=== PATIENT | female | born 1965 | race Two or more races ===

== ENCOUNTER 2019-01-03 15:14 | Emergency (ER) | payer OTHER | END 2019-01-03 23:03 | disposition home or self-care (01) | LOC: JER 15:14 ==

== ENCOUNTER 2019-08-09 16:05 | Observation (INO) | payer OTHER ==
[2019-08-09] MEDS ORDERED: ASPIRIN 81 MG CHEWABLE TABLETS PO ONE (16:12)
--- NOTE | 2019-08-09 16:12 | PDOC ---
Rapid Medical Evaluation Chief Complaint: Chest Pain Time Seen by Provider: 08/09/19 16:11 Medical Evaluation: Allergies Allergy/AdvReac Type Severity Reaction Status Date / Time No Known Drug Allergies Allergy Verified 01/03/19 15:17 fresh fruit Allergy Severe Uncoded 01/03/19 15:17 seafood Allergy Severe Uncoded 01/03/19 15:17 08/09/19 16:11 HPI: CP x1 week PE: No gross deficits ORDERS: Labs ASA Discharge Disposition - Diagnosis Chest pain - Referrals - Patient Instructions - Post Discharge Activity
[2019-08-09 16:17] VITALS: BMI 39.1
[2019-08-09] MEDS ORDERED: ASPIRIN 81 MG CHEWABLE TABLETS ONE (16:27)
--- NOTE | 2019-08-09 16:27 | PDOC ---
History of Present Illness - General Chief Complaint: Chest Pain Stated Complaint: R/O HEART ATTACK/CHEST PAIN Time Seen by Provider: 08/09/19 16:11 History Source: Patient Exam Limitations: No Limitations - History of Present Illness Initial Comments: 08/09/19 16:27 54yF w HTN, HLD, DM, CAD s/p three-vessel bypass and multiple stents, pituitary ademona s/p resection, migraines, diabetic peripheral neuropathy presenting w 1 week exertional chest pain, SOB, L arm weakness. Midsternal chest tightness, SOB worse with exertion, with reduced exercise capacity (symptom onset after 20 yards). Not related to position/food. Associated intermittent sharp pains between shoulder blades and L arm aching/weakness more persistent today. Similar symptoms to past [place]. Currently denying any symptoms at rest. Took 81 aspirin today, did not take any tylenol / aleve today. Denies fever, cough, vision change, headache, BLE swelling, AB pain, urinary/bowel mvmt changes. Past History - Past Medical History Allergies/Adverse Reactions: Allergies Allergy/AdvReac Type Severity Reaction Status Date / Time No Known Drug Allergies Allergy Verified 01/03/19 15:17 fresh fruit Allergy Severe Uncoded 01/03/19 15:17 seafood Allergy Severe Uncoded 01/03/19 15:17 Home Medications: Ambulatory Orders Amlodipine Besylate [Norvasc -] 5 mg PO DAILY 01/03/19 Ascorbic Acid [Vitamin C -] 1,000 mg PO HS 01/03/19 Aspirin 81 mg PO DAILY 01/03/19 Atorvastatin Calcium 80 mg PO HS 01/03/19 Cetirizine HCl [Zyrtec -] 10 mg PO DAILY 01/03/19 Cholecalciferol (Vitamin D3) [Vitamin D3] unit PO DAILY 01/03/19 Clopidogrel Bisulfate [Plavix -] 75 mg PO DAILY 01/03/19 Empagliflozin [Jardiance] 10 mg PO DAILY 01/03/19 Ezetimibe [Zetia -] 10 mg PO DAILY 01/03/19 Flaxseed Oil [Adah-3 Flaxseed Oil] 1,400 mg PO HS 01/03/19 Glimepiride [Amaryl -] 4 mg PO BID 01/03/19 Icosapent Ethyl [Vascepa] 1 gm PO BID 01/03/19 Isosorbide Mononitrate [Imdur -] 30 mg PO DAILY 01/03/19 Lisinopril [Prinivil] 10 mg PO DAILY 01/03/19 Magnesium Oxide [Magnesium] 500 mg PO HS 01/03/19 Metoprolol Succinate [Toprol Xl -] 25 mg PO BID 01/03/19 Montelukast Na [Singulair -] 10 mg PO HS 01/03/19 Ranitidine [Zantac -] 150 mg PO BID 01/03/19 Sitagliptin Phos/Metformin HCl [Janumet 50-1,000 mg Tablet] 1 each PO BID Cardiac Disorders: Yes (CAD) COPD: No Diabetes: Yes HTN: Yes - Surgical History Cardiac Surgery: Yes (triple bypass) Cholecystectomy: Yes - Immunization History Immunization Up to Date: Yes - Psycho Social/Smoking Cessation Hx Smoking Status: No Smoking History: Never smoked Have you smoked in the past 12 months: No Number of Cigarettes Smoked Daily: 0 Information on smoking cessation initiated: No Hx Alcohol Use: No Drug/Substance Use Hx: No Hx Substance Use Treatment: No Review of Systems - Review of Systems Constitutional: No: Chills, Fever HEENTM: No: Eye Pain, Nose Pain, Throat Pain, Mouth Pain Respiratory: Yes: SOB with Exertion. No: Cough Cardiac (ROS): Yes: Chest Pain. No: Palpitations, Syncope ABD/GI: No: Abdominal Distended, Constipated, Diarrhea, Nausea, Vomiting : No: Burning, Dysuria, Discharge, Hematuria Musculoskeletal: Yes: Back Pain. No: Joint Pain Integumentary: No: Bruising, Flushing, Lesions Neurological: Yes: Weakness (L arm). No: Headache, Numbness, Seizure, Tingling Psychiatric: No: Anxiety, Depression, Stressors Endocrine: No: Excessive Sweating, Flushing, Intolerance to Cold, Intolerance to Heat Hematologic/Lymphatic: No: Anemia, Blood Clots *Physical Exam - Vital Signs Last Vital Signs Temp Pulse Resp BP Pulse Ox 98.7 F 78 18 127/64 98 08/09/19 16:10 08/09/19 16:10 08/09/19 16:10 08/09/19 16:10 08/09/19 16:10 - Physical Exam General Appearance: Yes: Nourished, Appropriately Dressed. No: Apparent Distress HEENT: positive: EOMI, YANETH, Normal Voice. negative: Scleral Icterus (R), Scleral Icterus (L), Nasal Congestion Respiratory/Chest: positive: Lungs Clear, Normal Breath Sounds. negative: Chest Tender, Respiratory Distress, Crackles, Rales, Rhonchi, Stridor, Wheezing Cardiovascular: positive: Regular Rhythm, Regular Rate, S1, S2. negative: Edema , Murmur Extremity: positive: Normal Capillary Refill. 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 negative: Sensory Deficit, Confused, Disoriented Heart Score/ECG Review - History History: Moderately suspicious - Electrocardiogram EKG: Normal - Age Age: 45-65 - Risk Factors Risk Factors Heart Score: Yes Hx Hypercholesterolemia, Yes Hx Hypertension, Yes Hx Obesity Based on the list above the patient has:: >/=3 risk factors or Hx atherosclerotic disease - Troponin Troponin: </= normal limit - Score Heart Score - Total: 4 ED Treatment Course - LABORATORY CBC & Chemistry Diagram: 08/09/19 18:30 08/09/19 18:30 Medical Decision Making - Medical Decision Making 08/09/19 17:00 EKG - NSR, HR 78, QTc 419, unchanged since 01/03/19 CXR - clear lung blancas, normal heart size, no infiltrates/acute process Head CT pending official report, no gross infarct/bleed visualized --- 54yF w HTN, HLD, DM, CAD s/p three-vessel bypass and multiple stents, pituitary ademona s/p resection, migraines, diabetic peripheral neuropathy presenting w 1 week exertional chest pain, SOB, L arm weakness d/t unstable angina (neg tropx1 , NSR EKG). Low concern for CVA (no focal neuro deficits) vs aortic dissection ( not hypertensive) vs PE (no unilateral swelling) vs CHF (no BLE swelling) vs (neg) Given 162 aspirin Admitted tele/obvs Dr Phelan for unstable angina, HEART score 4, ACS rule out - pending 2nd trop, head CT [facility] Dr Kaba Discharge - Discharge Information Problems reviewed: Yes Clinical Impression/Diagnosis: Unstable angina Condition: Stable - Follow up/Referral Referrals: Gustavo Fowler MD [Primary Care Provider] - - Patient Discharge Instructions - Post Discharge Activity
--- NOTE | 2019-08-09 17:02 | PDOC ---
Attending Attestation - Resident Resident Name: Lyndon Lira - ED Attending Attestation I have performed the following: I have examined & evaluated the patient, The case was reviewed & discussed with the resident, I agree w/resident's findings & plan, Exceptions are as noted - HPI HPI: 08/09/19 17:02 54yF w HTN, HLD, DM, CAD s/p three-vessel bypass and multiple stents, pituitary ademona s/p resection, migraines, diabetic peripheral neuropathy presenting with complaint of chest pain. Patient presenting with approximately 1 week of chest pain/asencio on exertion especially going up stairs and resolves with rest. She went to see dr Fowler today who referred her to the ED. Pt notes the pain lasts ~20-30 min, associated with nausea and is associated with a sharp pain in her back and some subjctive arm weakness that she describes as typical for her anginal symptoms in the past. Pt denies any current active cp. Pt denies any fever/chills, notes she did have a mid nonproductive cough for the past few days. pt denie sany headache, dizziness, palpitations, bd pain, diarrhea, dysuria. pt endorses mild LE edema without calf pain for the past 2 days. - Physicial Exam PE: 08/09/19 17:29 GENERAL: The patient is awake, alert, and fully oriented, Nontoxic - in no acute distress. HEAD: Normocephalic, atraumatic. EYES: extraocular movements intact, sclera anicteric, conjunctiva clear. ENT: Normal voice, Moist mucous membranes. NECK: Normal range of motion, supple LUNGS: Breath sounds equal, clear to auscultation bilaterally. No wheezes, no rhonchi, no rales. HEART: Regular rate and rhythm, normal S1 and S2 without murmur, rub or gallop. ABDOMEN: Soft, nontender, No guarding, no rebound. No CVA tenderness EXTREMITIES: Normal range of motion, no edema. NEUROLOGICAL: No facial assymetry, Normal speech, PSYCH: Normal mood, normal affect. SKIN: Warm, Dry, normal turgor, - Medical Decision Making 08/09/19 17:34 54-year-old female multiple medical problems including CAD presenting with worsening exertional chest pain/dyspnea concerning for atypical angina. Patient is currently chest pain-free. Will obtain troponins, EKG, chest x-ray. Anticipate admission for ACS work-up 08/09/19 20:27 nonischemic EKG trop neg x 1 pt admitted to obs for acs workup
[2019-08-09 18:55] LABS: BASO % 0.6 % (0-2.0); HEMATOCRIT 42.1 % (32.4-45.2); HEMOGLOBIN 13.7 GM/dL (10.7-15.3); LYMPH % 20.8 % (8-40); MCH 26.5 pg (25.7-33.7); MCHC 32.5 g/dl (32.0-36.0); MEAN CELL VOLUME 81.6 fl (80-96); MEAN PLT VOLUME 9.3 fl (7.5-11.1); MONO % 5.9 % (3.8-10.2); NEUT % 71.7 % (42.8-82.8); PLATELET COUNT 288 K/MM3 (134-434); RBC 5.16 M/mm3 (3.60-5.2); RDW 18.1 % (11.6-15.6); WHITE BLOOD COUNT 9.9 K/mm3 (4.0-10.0)
[2019-08-09 19:07] LABS: INR 0.95 (0.83-1.09); PROTHROMBIN TIME (PATIENT) 11.2 SEC (9.7-13.0)
[2019-08-09 19:10] LABS: ACTIVATED PTT 30.9 SECONDS (25.2-36.5)
[2019-08-09 19:26] LABS: ALBUMIN 4.2 g/dl (3.4-5.0); BILIRUBIN,TOTAL 0.4 mg/dL (0.2-1); BLOOD UREA NITROGEN 16.4 mg/dL (7-18); CALCIUM 9.2 mg/dL (8.5-10.1); CREATININE 0.8 mg/dL (0.55-1.3); MAGNESIUM 2.2 mg/dL (1.8-2.4); POTASSIUM 4.3 mmol/L (3.5-5.1); TOT PROT 7.3 g/dl (6.4-8.2)
--- NOTE | 2019-08-09 20:26 | PN ---
Teaching Attending Note Name of Resident: Shira Kelley ATTENDING PHYSICIAN STATEMENT I saw and evaluated the patient. I reviewed the resident's note and discussed the case with the resident. I agree with the resident's findings and plan as documented. SUBJECTIVE: 54yF w HTN, HLD, DM, CAD s/p three-vessel bypass and multiple stents, pituitary ademona s/p resection, migraines, diabetic peripheral neuropathy presenting w 1 week exertional chest pain, SOB, L arm weakness. Patient has reduced exercise capacity with chest pain starting shortly after walking.In the emergency room denied having any chest pain at rest. Denied any cough, fever, vision changes, headache. OBJECTIVE: Last Vital Signs Temp Pulse Resp BP Pulse Ox 98.7 F 78 18 127/64 98 08/09/19 16:10 08/09/19 16:10 08/09/19 16:10 08/09/19 16:10 08/09/19 16:10 GENERAL: Well developed, well nourished. Awake and alert. No acute distress. Morbidly Obese HEENT: Normocephalic, atraumatic. PERRLA, EOMI. No conjunctival pallor. Sclera are non- icteric. Moist mucous membranes. Oropharynx is clear. NECK: Supple. Full ROM. No JVD. Carotid pulses 2+ and symmetric, without bruits. No thyromegaly. No lymphadenopathy. CARDIOVASCULAR: Regular rate and rhythm. No murmurs, rubs, or gallops. Distal pulses are 2+ and symmetric. PULMONARY: No evidence of respiratory distress. Lungs clear to auscultation bilaterally. No wheezing, rales or rhonchi. ABDOMINAL: Soft. Non-tender. Non-distended. No rebound or guarding. No organomegaly. Normoactive bowel sounds. MUSCULOSKELETAL Normal range of motion at all joints. No bony deformities or tenderness. No CVA tenderness. EXTREMITIES: No cyanosis. No clubbing. No edema. No calf tenderness. SKIN: Warm and dry. Normal capillary refill. No rashes. No jaundice. PSYCHIATRIC: Cooperative. Good eye contact. Appropriate mood and affect. Abnormal Lab Results 08/09/19 08/09/19 18:30 18:30 RDW 18.1 H Random Glucose 131 H Imaging studies reviewed Head CT was performed, pending report ASSESSMENT AND PLAN: 54-year-old woman with anginal type chest pain currently chest pain-free. Appears to be stable angina. Telemetry observation Transthoracic echo Trend troponins Nitroglycerin sublingual as needed if current chest pain Cardiology evaluationDr. Gitig Would benefit from inpatient or outpatient cardiac stress test Aspirin Statin Beta-luzmaria #Diabetes mellitus NovoLog sliding scale, basal insulin, A1c, diabetic low-sodium diet #Hypertension Continue home dose metoprolol, lisinopril, isosorbide mononitrate, amlodipine #DVT prophylaxisheparin subcutaneously
[2019-08-09] MEDS ORDERED: SODIUM CHLORIDE 1,000 ML IV SCH (22:00)
[2019-08-09] MEDS: INSULIN SLIDING SCALE (NOVOLOG) 1 VIAL SQ SCH (22:44)
--- NOTE | 2019-08-10 00:22 | HP ---
CHIEF COMPLAINT: Exertional chest pain PCP: Dr. Fowler Neurologist: Dr. Galvan Product Accountant: Dr. Kaba HISTORY OF PRESENT ILLNESS: 54 y/o/f with PMHx of HTN, HLD, DM, CAD s/p three-vessel bypass and multiple stents, pituitary ademona s/p resection, migraines, diabetic peripheral neuropathy who presents for worsening chest pain x1-2 weeks. Patient states the pain is worse with exertion and better when she is resting. She denies pain currently while lying in the ER bed. She has had associated SOB with CP and left arm pain and weakness. She is normally active and goes on walks but now she is not able to walk more than 20 yards without getting CP and SOB. The pain is described as squeezing and burning in nature, is on both sides of her upper chest and also between her shoulderblades. She has used Nitro 10 times within the last 2 weeks with improvement in the pain. Her pain is not associated with eating food. She has taken tums without improvement. 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 Denies changes in vision, dysuria, hematuria, diarrhea. She has chronic constipation. ER course was notable for: (1) Negative trop x2 (2) Given ASA 161mg (3) CT head without acute pathology Recent Travel: denies PAST MEDICAL HISTORY: HTN, HLD, DM, CAD s/p three-vessel bypass and multiple stents, pituitary ademona s/p resection, migraines, diabetic peripheral neuropathy PAST SURGICAL HISTORY: Transphenoidal adenomectomy (Macro pituitary removed), three-vessel bypass and multiple stents, cholecystectomy, high tibial osteotomy, partial hysterectomy, arthroscopic knee surgeries, Laparoscopy for fibroids,endometriosis Social History: Smoking: denies Alcohol: denies Drugs: denies Family History: Diabetes, HTN, heart disease, cancer (uterine - great grandmother, lung - great uncle) Allergies No Known Drug Allergies Allergy (Verified 01/03/19 15:17) fresh fruit Allergy (Severe, Uncoded 01/03/19 15:17) seafood Allergy (Severe, Uncoded 01/03/19 15:17) HOME MEDICATIONS: Home Medications Medication Instructions Recorded Amlodipine Besylate [Norvasc -] 5 mg PO DAILY 01/03/19 Ascorbic Acid [Vitamin C -] 1,000 mg PO HS 01/03/19 Aspirin 81 mg PO DAILY 01/03/19 Atorvastatin Calcium 80 mg PO HS 01/03/19 Cetirizine HCl [Zyrtec -] 10 mg PO DAILY 01/03/19 Cholecalciferol (Vitamin D3) unit PO DAILY 01/03/19 [Vitamin D3] Clopidogrel Bisulfate [Plavix -] 75 mg PO DAILY 01/03/19 Empagliflozin [Jardiance] 10 mg PO DAILY 01/03/19 Ezetimibe [Zetia -] 10 mg PO DAILY 01/03/19 Flaxseed Oil [[place]-3 Flaxseed Oil] 1,400 mg PO HS 01/03/19 Glimepiride [Amaryl -] 4 mg PO BID 01/03/19 Icosapent Ethyl [Vascepa] 1 gm PO BID 01/03/19 Isosorbide Mononitrate [Imdur -] 30 mg PO DAILY 01/03/19 Lisinopril [Prinivil] 10 mg PO DAILY 01/03/19 Magnesium Oxide [Magnesium] 500 mg PO HS 01/03/19 Metoprolol Succinate [Toprol Xl -] 25 mg PO BID 01/03/19 Montelukast Na [Singulair -] 10 mg PO HS 01/03/19 Ranitidine [Zantac -] 150 mg PO BID 01/03/19 Sitagliptin Phos/Metformin HCl 1 each PO BID 01/03/19 [Janumet 50-1,000 mg Tablet] REVIEW OF SYSTEMS As per HPI PHYSICAL EXAMINATION Vital Signs - 24 hr 08/09/19 08/09/19 16:10 21:50 Temperature 98.7 F Pulse Rate 78 Pulse Rate [ 71 Right Brachial] Respiratory 18 17 Rate Blood Pressure 127/64 Blood Pressure 133/78 [Right Arm] O2 Sat by Pulse 98 100 Oximetry (%) GENERAL: Awake, alert, and fully oriented, in no acute distress. HEAD: Normal with no signs of trauma. EYES: PERRL, EOMI, no ptosis EARS, NOSE, THROAT: oropharynx clear without exudates. Moist mucous membranes. NECK: Normal range of motion, supple without lymphadenopathy, JVD, or masses. LUNGS: Breath sounds equal, clear to auscultation bilaterally. No wheezes, and no crackles. No accessory muscle use. HEART: RRR, systolic murmur noted ABDOMEN: Soft, nontender, not distended, normoactive bowel sounds, no guarding, no rebound, no masses MUSCULOSKELETAL: No bony deformities or tenderness. No CVA tenderness. EXTREMITIES: 2+ pulses, warm, well-perfused. No calf tenderness. No peripheral edema. NEUROLOGICAL: Normal speech. Normal gait. 5/5 strength upper and lower extremities. CN 2-12 intact. sensation intact throughout PSYCHIATRIC: Cooperative. Good eye contact. Appropriate mood and affect. SKIN: Warm, dry, normal turgor, no rashes or lesions noted, normal capillary refill. Laboratory Results - last 24 hr 08/09/19 08/09/19 08/09/19 18:30 18:30 18:30 WBC 9.9 RBC 5.16 Hgb 13.7 Hct 42.1 D MCV 81.6 MCH 26.5 MCHC 32.5 RDW 18.1 H Plt Count 288 D MPV 9.3 D Absolute Neuts (auto) 7.1 Neutrophils % 71.7 Lymphocytes % 20.8 Monocytes % 5.9 Eosinophils % 1.0 Basophils % 0.6 Nucleated RBC % 0 PT with INR 11.20 INR 0.95 PTT (Actin FS) 30.9 Sodium Potassium Chloride Carbon Dioxide Anion Gap BUN Creatinine Est GFR (CKD-EPI)AfAm Est GFR (CKD-EPI)NonAf POC Glucometer Random Glucose Calcium Magnesium Total Bilirubin AST ALT Alkaline Phosphatase Creatine Kinase 62 Troponin I < 0.02 Total Protein Albumin Serum , Qual 08/09/19 08/09/19 08/09/19 18:30 18:30 21:15 WBC RBC Hgb Hct MCV MCH MCHC RDW Plt Count MPV Absolute Neuts (auto) Neutrophils % Lymphocytes % Monocytes % Eosinophils % Basophils % Nucleated RBC % PT with INR INR PTT (Actin FS) Sodium 138 Potassium 4.3 Chloride 106 Carbon Dioxide 23 Anion Gap 8 BUN 16.4 Creatinine 0.8 Est GFR (CKD-EPI)AfAm 96.87 Est GFR (CKD-EPI)NonAf 83.58 POC Glucometer Random Glucose 131 H Calcium 9.2 Magnesium 2.2 Total Bilirubin 0.4 AST 18 ALT 38 Alkaline Phosphatase 87 Creatine Kinase Troponin I < 0.02 Total Protein 7.3 Albumin 4.2 Serum , Qual Negative 08/09/19 22:41 WBC RBC Hgb Hct MCV MCH MCHC RDW Plt Count MPV Absolute Neuts (auto) Neutrophils % Lymphocytes % Monocytes % Eosinophils % Basophils % Nucleated RBC % PT with INR INR PTT (Actin FS) Sodium Potassium Chloride Carbon Dioxide Anion Gap BUN Creatinine Est GFR (CKD-EPI)AfAm Est GFR (CKD-EPI)NonAf POC Glucometer 131 Random Glucose Calcium Magnesium Total Bilirubin AST ALT Alkaline Phosphatase Creatine Kinase Troponin I Total Protein Albumin Serum , Qual ASSESSMENT/PLAN: 54 y/o/f with PMHx of HTN, HLD, DM, CAD s/p three-vessel bypass and multiple stents, pituitary ademona s/p resection, migraines, diabetic peripheral neuropathy who presents for worsening chest pain x1-2 weeks. Admitted to tele obs for stable angina, rule out ACS. #Stable Angina - patient only having pain with exertion - Trops negative x2, trend trop - ECHO to evaluate cardiac function - Cardiology consulted (Dr. Kaba) - Tele obs admission - Continue ASA 81mg #HTN - continue home doses of Amlodipine, Isosorbide Mononitrate, Lisinopril, Metoprolol #Hypothyroidism - Continue home Synthroid dose #HLD - Continue home Atorvastatin dose #DM - ISS - BGMs - check A1c #Migraines - Start on home Rizatriptan and Topiramate #FEN - NS @ 42mls/hr - NPO after midnight in case stress test needed, otherwise can have diabetic- sodium controlled diet #Prophylaxis - Eliquis 75mg PO daily - home dose #Disposition - admitted to tele obs Visit type - Emergency Visit Emergency Visit: Yes ED Registration Date: 08/09/19 Care time: The patient presented to the Emergency Department on the above date and was hospitalized for further evaluation of their emergent condition. - New Patient This patient is new to me today: Yes Date on this admission: 08/10/19 - Critical Care Critical Care patient: No ATTENDING PHYSICIAN STATEMENT I saw and evaluated the patient. I reviewed the resident's note and discussed the case with the resident. I agree with the resident's findings and plan as documented. SUBJECTIVE: OBJECTIVE: ASSESSMENT AND PLAN:
[2019-08-10 06:00] LABS: HEMATOCRIT 38.6 % (32.4-45.2); HEMOGLOBIN 12.6 GM/dL (10.7-15.3); MCH 26.6 pg (25.7-33.7); MCHC 32.5 g/dl (32.0-36.0); MEAN CELL VOLUME 81.7 fl (80-96); MEAN PLT VOLUME 9.2 fl (7.5-11.1); PLATELET COUNT 225 K/MM3 (134-434); RBC 4.73 M/mm3 (3.60-5.2); RDW 18.2 % (11.6-15.6); WHITE BLOOD COUNT 7.3 K/mm3 (4.0-10.0)
[2019-08-10 06:27] LABS: ALBUMIN 3.7 g/dl (3.4-5.0); BILIRUBIN,TOTAL 0.3 mg/dL (0.2-1); BLOOD UREA NITROGEN 15.7 mg/dL (7-18); CALCIUM 8.9 mg/dL (8.5-10.1); CREATININE 0.8 mg/dL (0.55-1.3); TOT PROT 6.6 g/dl (6.4-8.2)
[2019-08-10] MEDS: INSULIN SLIDING SCALE (NOVOLOG) 1 VIAL SQ SCH ×3 (07:17→11:05)
[2019-08-10] MEDS ORDERED: PATIENT'S OWN MEDICATION (NON-FORMULARY) (Rizatriptan Benzoate [Rizatriptan] 10 MG) PO PRN (08:22)
[2019-08-10] MEDS ORDERED: LEVOTHYROXINE NA 25 MCG TABLET (FP) PO SCH (08:45)
--- NOTE | 2019-08-10 09:18 | EKG ---
Test Reason : Blood Pressure : / mmHG Vent. Rate : 078 BPM Atrial Rate : 078 BPM P-R Int : 116 ms QRS Dur : 088 ms QT Int : 368 ms P-R-T Axes : -05 063 068 degrees QTc Int : 419 ms NORMAL SINUS RHYTHM NONSPECIFIC T WAVE ABNORMALITY ABNORMAL ECG WHEN COMPARED WITH ECG OF 03-JAN-2019 16:26, NONSPECIFIC T WAVE ABNORMALITY HAS REPLACED INVERTED T WAVES IN ANTERIOR LEADS Confirmed by SAAD WAYNE, RITO ([id number]) on 08/10/2019 9:18:03 AM Referred By: Confirmed By:RITO NASH MD
[2019-08-10] MEDS ORDERED: LEVOTHYROXINE NA 25 MCG TABLET (FP) ONE (09:47)
[2019-08-10] MEDS ORDERED: CLOPIDOGREL BISULFATE 75 MG TABLET (FP) PO SCH (10:00)
[2019-08-10] MEDS ORDERED: amLODIPine BESYLATE 5 MG TABLET (FP) PO SCH (10:00)
[2019-08-10] MEDS ORDERED: LISINOPRIL 10 MG TABLET (FP) PO SCH (10:00)
[2019-08-10] MEDS ORDERED: ASPIRIN 81 MG CHEWABLE TABLETS PO SCH (10:00)
[2019-08-10] MEDS ORDERED: METOPROLOL TARTRATE 25 MG TABLET (FP) PO SCH (10:00)
[2019-08-10] MEDS ORDERED: ISOSORBIDE MONONITRATE 30 MG TAB.SR.24H (FP) PO SCH (10:00)
[2019-08-10] MEDS ORDERED: HYDROCORTISONE 10 MG TABLET PO SCH (10:00)
[2019-08-10] MEDS ORDERED: LACTOBACILLUS ACIDOPHILUS 1 TABLET PO SCH (10:00)
[2019-08-10] MEDS ORDERED: LACTULOSE 20 GM/30 ML UDC (FOR ORAL USE ONLY) PO SCH (10:00)
[2019-08-10] MEDS ORDERED: ENOXAPARIN NA (PORCINE) 40 MG/0.4 ML DISP.SYRIN SQ SCH (10:00)
[2019-08-10 10:11] VITALS: BP 133/70; PULSE 75; TEMP 98.1
[2019-08-10] MEDS ORDERED: LISINOPRIL 5 MG TABLET (FP) ONE (10:38)
[2019-08-10] MEDS ORDERED: amLODIPine BESYLATE 5 MG TABLET (FP) ONE (10:38)
[2019-08-10] MEDS ORDERED: ASPIRIN 81 MG CHEWABLE TABLETS ONE (10:38)
[2019-08-10] MEDS ORDERED: METOPROLOL TARTRATE 25 MG TABLET (FP) ONE (10:39)
[2019-08-10] MEDS ORDERED: ISOSORBIDE MONONITRATE 60 MG TAB.SR.24H (FP) PO ONE (10:39)
[2019-08-10] MEDS ORDERED: CLOPIDOGREL BISULFATE 75 MG TABLET (FP) ONE (10:39)
--- NOTE | 2019-08-10 11:33 | PN ---
Progress Note (short form) - Note Progress Note: Mr. Luna, patient's , left work 08/09/19 early to come to hospital to check on his . Please excuse, Thank you, Dr. Ag
--- NOTE | 2019-08-10 11:36 | DS ---
Physical Examination Vital Signs: Vital Signs Temperature 98.1 F 08/10/19 10:10 Pulse Rate 75 08/10/19 10:10 Respiratory Rate 18 08/10/19 10:10 Blood Pressure 133/70 08/10/19 10:10 O2 Sat by Pulse Oximetry (%) 97 08/10/19 10:10 Findings/Remarks: Seen and examined, no acute events overnight, feeling well. no complaints, no cp , sob, palpitations Constitutional: Yes: Well Nourished, No Distress, Calm Cardiovascular: Yes: WNL, Regular Rate and Rhythm Respiratory: Yes: WNL, Regular, CTA Bilaterally Gastrointestinal: Yes: WNL, Normal Bowel Sounds, Soft Extremities: Yes: WNL Edema: No Labs: CBC, BMP 08/10/19 05:32 08/10/19 05:32 Discharge Summary Problems reviewed: Yes Reason For Visit: UNSTABLE ANGINA PECTORIS Current Active Problems Unstable angina (Acute) Hospital Course: ASSESSMENT AND PLAN: 54-year-old woman with anginal type chest pain currently chest pain-free. Appears to be stable angina. 1) Stable angina trop x 2 neg no ischemia on ekg cardio eval will have outpatient followup cleared to go home cw all home meds Condition: Stable - Instructions Referrals: Gustavo Fowler MD [Primary Care Provider] - Disposition: HOME - Home Medications Comprehensive Discharge Medication List: Ambulatory Orders Amlodipine Besylate 5 mg PO DAILY 08/10/19 Aspirin 81 mg PO DAILY 08/10/19 Atorvastatin Calcium 80 mg PO DAILY 08/10/19 Biotin 5 mg PO BID 08/10/19 Cetirizine HCl [Zyrtec -] 10 mg PO DAILY 08/10/19 Cholecalciferol (Vitamin D3) [Vitamin D3] 50 mcg PO DAILY 08/10/19 Clopidogrel Bisulfate [Plavix -] 75 mg PO DAILY 08/10/19 Desmopressin (Nonrefrigerated) [Desmopressin 10 Mcg/0.1 ml Spr] 10 mcg NS HS 06/19 Empagliflozin [Jardiance] 10 mg PO DAILY 08/10/19 Ezetimibe 10 mg PO DAILY 08/10/19 Famotidine 20 mg PO BID 08/10/19 Glimepiride 4 mg PO BID 08/10/19 Hydrocortisone [Cortef] 10 mg PO DAILY 08/10/19 Icosapent Ethyl [Vascepa] 1 gm PO BID 08/10/19 Isosorbide Mononitrate [Isosorbide Mononitrate ER] 30 mg PO DAILY 08/10/19 L.acidoph,Paracasei, B.lactis [Probiotic] 1 each PO DAILY 08/10/19 Lactulose (Oral Use) [Cephulac -] 15 gm PO DAILY 08/10/19 Levothyroxine [Synthroid -] 25 mcg PO DAILY 08/10/19 Lisinopril 10 mg PO DAILY 08/10/19 Lubiprostone [Amitiza] 24 mcg PO DAILY 08/10/19 Magnesium Citrate 500 mg PO DAILY 08/10/19 Metoprolol Tartrate 25 mg PO DAILY 08/10/19 Montelukast Sodium [Singulair] 10 mg PO DAILY 08/10/19 Olopatadine HCl [Pataday] 2.5 ml OP ASDIR 08/10/19 Pramipexole Di-HCl [Mirapex] 0.25 mg PO BID 08/10/19 Rifampin [Rifadin -] 600 mg PO DAILY 08/10/19 Rizatriptan Benzoate [Rizatriptan] 10 mg PO DAILY PRN 08/10/19 Sitagliptin Phos/Metformin HCl [Janumet 50-1,000 mg Tablet] 1 each PO BID Topiramate 50 mg PO TID 08/10/19 Topiramate [Topamax] 50 mg PO DAILY 08/10/19 Ubidecarenone/Vit E/Vit E Mix [Co-Enzyme Q10 100 mg Softgel] 1 each PO DAILY 06/19
--- NOTE | 2019-08-10 12:22 | CON.CARD ---
Consult Consult Specialty:: Cardiology Referred by:: Medicine Reason for Consultation:: chest pain - History of Present Illness Chief Complaint: chest pain History of Present Illness: 54F h/o HTN, HLD, DM, CAD s/p CABGx3 and PCI p/w chest pain. Walks 2-3 miles three days a week with her sisters, had been getting more difficult over the last couple of weeks and a few days ago felt uncomfortable with walking at all. Also with burning in chest with lying down. Exertional CP associated with dyspnea, also has had cough for the last couple of weeks. Used nitro with improvement several times. Currently chest pain free, asking to go home. - Alcohol/Substance Use Hx Alcohol Use: No - Smoking History Smoking history: Never smoked Have you smoked in the past 12 months: No Aproximately how many cigarettes per day: 0 Home Medications - Allergies Allergies/Adverse Reactions: Allergies Allergy/AdvReac Type Severity Reaction Status Date / Time No Known Drug Allergies Allergy Verified 08/10/19 02:58 fresh fruit Allergy Severe Uncoded 08/10/19 02:58 seafood Allergy Severe Uncoded 08/10/19 02:58 - Home Medications Home Medications: Ambulatory Orders Amlodipine Besylate 5 mg PO DAILY 08/10/19 Aspirin 81 mg PO DAILY 08/10/19 Atorvastatin Calcium 80 mg PO DAILY 08/10/19 Biotin 5 mg PO BID 08/10/19 Cetirizine HCl [Zyrtec -] 10 mg PO DAILY 08/10/19 Cholecalciferol (Vitamin D3) [Vitamin D3] 50 mcg PO DAILY 08/10/19 Clopidogrel Bisulfate [Plavix -] 75 mg PO DAILY 08/10/19 Desmopressin (Nonrefrigerated) [Desmopressin 10 Mcg/0.1 ml Spr] 10 mcg NS HS 06/19 Empagliflozin [Jardiance] 10 mg PO DAILY 08/10/19 Ezetimibe 10 mg PO DAILY 08/10/19 Famotidine 20 mg PO BID 08/10/19 Glimepiride 4 mg PO BID 08/10/19 Hydrocortisone [Cortef] 10 mg PO DAILY 08/10/19 Icosapent Ethyl [Vascepa] 1 gm PO BID 08/10/19 Isosorbide Mononitrate [Isosorbide Mononitrate ER] 30 mg PO DAILY 08/10/19 Isosorbide Mononitrate [Isosorbide Mononitrate ER] 60 mg PO DAILY #30 tab.er.24h 08/10/19 L.acidoph,Paracasei, B.lactis [Probiotic] 1 each PO DAILY 08/10/19 Lactulose (Oral Use) [Cephulac -] 15 gm PO DAILY 08/10/19 Levothyroxine [Synthroid -] 25 mcg PO DAILY 08/10/19 Lisinopril 10 mg PO DAILY 08/10/19 Lubiprostone [Amitiza] 24 mcg PO DAILY 08/10/19 Magnesium Citrate 500 mg PO DAILY 08/10/19 Metoprolol Tartrate 25 mg PO DAILY 08/10/19 Montelukast Sodium [Singulair] 10 mg PO DAILY 08/10/19 Olopatadine HCl [Pataday] 2.5 ml OP ASDIR 08/10/19 Pramipexole Di-HCl [Mirapex] 0.25 mg PO BID 08/10/19 Rifampin [Rifadin -] 600 mg PO DAILY 08/10/19 Rizatriptan Benzoate [Rizatriptan] 10 mg PO DAILY PRN 08/10/19 Sitagliptin Phos/Metformin HCl [Janumet 50-1,000 mg Tablet] 1 each PO BID Topiramate 50 mg PO TID 08/10/19 Topiramate [Topamax] 50 mg PO DAILY 08/10/19 Ubidecarenone/Vit E/Vit E Mix [Co-Enzyme Q10 100 mg Softgel] 1 each PO DAILY 06/19 Family Medical History Family History: Unremarkable Review of Systems - Review of Systems Constitutional: reports: No Symptoms Eyes: reports: No Symptoms HENT: reports: No Symptoms Neck: reports: No Symptoms Cardiovascular: reports: Chest Pain Respiratory: reports: No Symptoms Gastrointestinal: reports: No Symptoms Genitourinary: reports: No Symptoms Musculoskeletal: reports: No Symptoms Integumentary: reports: No Symptoms Neurological: reports: No Symptoms Endocrine: reports: No Symptoms Hematology/Lymphatic: reports: No Symptoms Psychiatric: reports: No Symptoms Vital Signs: Vital Signs Temperature 98.1 F 08/10/19 10:10 Pulse Rate 75 08/10/19 10:10 Respiratory Rate 18 08/10/19 10:10 Blood Pressure 133/70 08/10/19 10:10 O2 Sat by Pulse Oximetry (%) 97 08/10/19 10:10 Constitutional: Yes: Well Nourished, No Distress, Calm Eyes: Yes: Conjunctiva Clear, EOM Intact HENT: Yes: Atraumatic, Normocephalic Neck: Yes: Supple, Trachea Midline Respiratory: Yes: Regular, CTA Bilaterally Gastrointestinal: Yes: Normal Bowel Sounds, Soft Cardiovascular: Yes: Regular Rate and Rhythm JVD: No Carotid Bruit: No Heart Sounds: Yes: S1, S2 Extremities: No: Cold Edema: No Integumentary: No: Jaundice Neurological: Yes: Alert, Oriented Psychiatric: No: Agitated - Other Data Labs, Other Data: CBC, BMP 08/10/19 05:32 08/10/19 05:32 INR, PTT INR 0.95 (0.83-1.09) 08/09/19 18:30 Troponin, BNP 08/09/19 08/09/19 08/10/19 18:30 21:15 03:15 Troponin I < 0.02 < 0.02 < 0.02 Troponin, BNP 08/09/19 08/09/19 08/10/19 18:30 21:15 03:15 Troponin I < 0.02 < 0.02 < 0.02 Assessment/Plan EKG: sinus, nl intervals, nonspecific T wave changes CXR: no acute process tele: sinus Chest pain, CAD s/p CABG and PCI - hx CABG 2011, 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 Kaba in 1-2 weeks HTN - cont home meds hypothyroidism - manage per primary HLD - cont statin DM - manage per primary
[2019-08-10] MEDS ORDERED: TOPIRAMATE 25 MG TABLET (FP) PO SCH (14:00)
[2019-08-10] MEDS ORDERED: ATORVASTATIN CA 80 MG TABLET (FP) PO SCH (22:00)
== END 2019-08-10 11:58 | disposition home or self-care (01) ==
LOC: JER 16:05 → JERBED 19:22
PROVIDERS: ADMIT Internal Medicine; ATTEND Internal Medicine
PROC: 3E0337Z Introduction of Electrolytic and Water Balance Substance into Peripheral Vein, Percutaneous Approach (ICD-10-PCS; principal; 2019-08-09)
DX: I20.8 Other forms of angina pectoris (principal); I10 Essential (primary) hypertension; E78.5 Hyperlipidemia, unspecified; E03.9 Hypothyroidism, unspecified; I25.10 Atherosclerotic heart disease of native coronary artery without angina pectoris; E11.42 Type 2 diabetes mellitus with diabetic polyneuropathy; Z79.84 Long term (current) use of oral hypoglycemic drugs; G43.909 Migraine, unspecified, not intractable, without status migrainosus; E66.9 Obesity, unspecified; Z68.39 Body mass index [BMI] 39.0-39.9, adult; Z79.82 Long term (current) use of aspirin; Z91.013 Allergy to seafood; Z91.018 Allergy to other foods; Z86.018 Personal history of other benign neoplasm; Z95.1 Presence of aortocoronary bypass graft; Z95.5 Presence of coronary angioplasty implant and graft; Z79.02 Long term (current) use of antithrombotics/antiplatelets
CPT/HCPCS: 36415; 70450-TC; 71046-TC-FY; 80053; 82550; 82962; 83036; 83735; 84484; 84703; 85025; 85027; 85610; 85730; 93005; 93010; 99285-25; G0378; J7030